=== PATIENT | male | born 1955 | race Caucasian/White ===

== ENCOUNTER 2021-08-20 10:46 | Emergency (ER) | payer MEDICARE ==
[2021-08-20] MEDS ORDERED: Sodium Chloride 0.9% 1000 ML 0 ML ONE (10:55)
[2021-08-20] MEDS ORDERED: Sodium Chloride 0.9% 1000 ML 1,000 ML IV STA ×2 (11:10→12:43)
--- NOTE | 2021-08-20 11:10 | ERPHSYRPT ---
- History of Present Illness Time Seen by Provider: 08/20/21 10:50 Source: EMS Exam Limitations: clinical condition Patient Subjective Stated Complaint: pt here found on floor on back, pt was seen last night at 2100. pt arrived per ems unresponsive, but pulls away to pain, being bagged. Triage Nursing Assessment: pt unresponsive expect to pain, thin with multi skin tears to both arms and knees,warm blankets applied to lower body, has slight brennan ma to lower legs, Physician History: This is a 66-year-old cachectic white male who has home health and apparently was visited by them yesterday but there was no answer at his door. Later in the day (approximately 9 PM) patient was seen by a friend and put on the patient's couch. The friend called him this morning but there was no answer. He asked the police to do a adult welfare check. They could see him through the window blocking the door and EMS was notified. Patient was found unresponsive with room air oxygenation saturation of 70%. Patient arrives to the emergency department via EMS with 100% nonrebreather. Patient is cold cachectic breathing on his own approximately 12-15 respirations per minute. The oxygenation waveform is poor because his extremities are so cold. Patient arrived as a Andrea Munoz but soon after arrival his name was determined. He has a history of cirrhosis, folic acid deficiency, and hypertension. His blood sugar in route from the scene was 80. Timing/Duration: today Severity: moderate Associated Symptoms: other (Patient nonverbal) Allergies/Adverse Reactions: No Known Drug Allergies Allergy (Unverified 08/20/21 11:10) Home Medications: Furosemide 1 ea DAILY 08/20/21 [History] Pantoprazole 40 mg [Protonix 40 mg IV] 1 ea DAILY 08/20/21 [History] Hx Tetanus, Diphtheria Vaccination/Date Given: No (unknown) Hx Influenza Vaccination/Date Given: No (unknown) Hx Pneumococcal Vaccination/Date Given: No (unknown) Immunizations Up to Date: (unknown) Travel Risk - International Travel Have you traveled outside of the country in past 3 weeks: No - Coronavirus Screening Are you exhibiting any of the following symptoms?: No Close contact with a COVID-19 positive Pt in past 14-21 Days: No - Review of Systems Constitutional: No Symptoms Eyes: No Symptoms Ears, Nose, & Throat: No Symptoms Respiratory: No Symptoms Cardiac: No Symptoms Abdominal/Gastrointestinal: No Symptoms Genitourinary Symptoms: No Symptoms Musculoskeletal: No Symptoms Skin: No Symptoms Neurological: Other (Nonverbal) Psychological: No Symptoms Endocrine: No Symptoms Hematologic/Lymphatic: No Symptoms Immunological/Allergic: No Symptoms All Other Systems: Reviewed and Negative - Past Medical History Pertinent Past Medical History: Yes GI Medical History: Cirrhosis - Past Surgical History Past Surgical History: No (unknown) - Social History Smoking Status: Current every day smoker Exposure to second hand smoke: Yes Drug Use: none Patient Lives Alone: (unknown) - Nursing Vital Signs Nursing Vital Signs: Initial Vital Signs O2 Sat by Pulse Oximetry 87 L 08/20/21 10:47 Pain Scale Pain Intensity 0 - Physical Exam General Appearance: lethargy, other Eye Exam: PERRL/EOMI (Nonverbal), eyes nml inspection Ears, Nose, Throat Exam: TMs normal, dry mucous membranes Neck Exam: normal inspection, non-tender, supple, full range of motion Respiratory Exam: normal breath sounds, lungs clear, airway intact, No chest ten derness, No respiratory distress, No rhonchi, No wheezing Cardiovascular Exam: regular rate/rhythm, normal heart sounds, normal peripheral pulses Gastrointestinal/Abdomen Exam: soft, normal bowel sounds, No tenderness Rectal Exam: not done Back Exam: normal inspection, normal range of motion, No CVA tenderness Skin Exam: other (Multiple skin tears including bilateral knees bilateral forearms left upper arm laterally) Lymphatic Exam: No adenopathy SpO2 Interpretation: hypoxic SpO2: 87 O2 Delivery: Non-rebreather - Course Nursing assessment & vital signs reviewed: Yes EKG Interpreted by Me: RATE (79), NORMAL AXIS, NORMAL ST-T, Other (No acute ischemic changes on today's EKG. There is no comparison EKG.) Ordered Tests: Active Orders 24 hr Category Date Time Status Catheter-[place] STAT Care 08/20/21 11:10 Active EKG-ER Only STAT Care 08/20/21 11:10 Active IV Insertion STAT Care 08/20/21 11:10 Active NPO (ED) STAT Care 08/20/21 11:10 Active Oxygen-ED Only Nasal Cannula 2 lpm Care 08/20/21 11:10 Active POCT Glucose Check STAT Care 08/20/21 11:10 Active Pulse Oximetry (ED) STAT Care 08/20/21 11:10 Active CHEST 1 VIEW (PORTABLE) Stat Exams 08/20/21 11:42 Completed HEAD WITHOUT CONTRAST [CT] Stat Exams 08/20/21 11:11 Completed ARTERIAL BLOOD GASES Urgent Lab 08/20/21 10:55 Completed BLOOD CULTURE Stat Lab 08/20/21 13:59 Received CBC W DIFF Stat Lab 08/20/21 11:15 Completed CMP Stat Lab 08/20/21 11:15 Completed CULTURE,URINE Stat Lab 08/20/21 11:10 Ordered D-DIMER QUANTITATIVE Stat Lab 08/20/21 11:15 Completed ETHYL ALCOHOL Stat Lab 08/20/21 11:15 Completed Lactic Acid Stat Lab 08/20/21 10:55 Completed Lactic Acid Stat Lab 08/20/21 13:24 Received POCT GLUCOSE Stat Lab 08/20/21 11:23 Completed PROTIME WITH INR Stat Lab 08/20/21 11:15 Completed T4 (Thyroxine) Stat Lab 08/20/21 11:15 Completed TROPONIN Q3H Lab 08/20/21 11:00 Completed TROPONIN Q3H Lab 08/20/21 15:45 Ordered TROPONIN Q3H Lab 08/20/21 18:45 Ordered TROPONIN Q3H Lab 08/20/21 21:45 Ordered TSH, 3RD Generation Stat Lab 08/20/21 11:15 Completed UA W/RFX UR CULTURE Stat Lab 08/20/21 11:17 Completed Urine Triage Profile Stat Lab 08/20/21 11:17 Completed Medication Summary Discontinued Medications Generic Name Dose Route Start Last Admin Trade Name Freq PRN Reason Stop Dose Admin Dextrose 50 ml 08/20/21 11:25 08/20/21 11:29 Dextrose 50%-Water 50 Ml Abboject IV 08/20/21 11:26 50 ml STAT ONE Administration Dextrose Confirm 08/20/21 11:24 Dextrose 50%-Water 50 Ml Abboject Administered 08/20/21 11:25 Dose 50 ml IV .STK-MED ONE Sodium Chloride Confirm 08/20/21 10:55 Sodium Chloride 0.9% 1000 Ml Administered 08/20/21 10:56 Dose 1,000 mls @ ud .ROUTE .STK-MED ONE Sodium Chloride 1,000 mls @ 999 mls/hr 08/20/21 11:10 08/20/21 12:32 Sodium Chloride 0.9% 1000 Ml IV 08/20/21 12:10 Infused .Q1H1M STA Infusion Sodium Chloride 1,000 mls @ 999 mls/hr 08/20/21 12:43 08/20/21 13:45 Sodium Chloride 0.9% 1000 Ml IV 08/20/21 13:43 999 mls/hr .Q1H1M STA Administration Sodium Chloride Confirm 08/20/21 13:13 Sodium Chloride 0.9% 1000 Ml Administered 08/20/21 13:14 Dose 1,000 mls @ ud .ROUTE .STK-MED ONE Sodium Chloride Confirm 08/20/21 13:18 Sodium Chloride 0.9% 1000 Ml Administered 08/20/21 13:19 Dose 1,000 mls @ ud .ROUTE .STK-MED ONE Naloxone HCl Confirm 08/20/21 11:23 Naloxone Hcl 2mg/2 Ml 2 Mg/2 Ml Syr Administered 08/20/21 11:24 Dose 2 mg .ROUTE .STK-MED ONE Naloxone HCl 2 mg 08/20/21 11:30 08/20/21 11:31 Naloxone Hcl 2mg/2 Ml 2 Mg/2 Ml Syr IV 08/20/21 11:31 2 mg STAT ONE Administration Pantoprazole Sodium 40 mg 08/20/21 12:09 08/20/21 12:33 Pantoprazole 40 Mg Vial IV 08/20/21 12:10 40 mg STAT ONE Administration Pantoprazole Sodium Confirm 08/20/21 12:32 Pantoprazole 40 Mg Vial Administered 08/20/21 12:33 Dose 40 mg IV .STK-MED ONE Lab/Rad Data: Laboratory Result Diagrams 08/20/21 11:15 08/20/21 11:15 Laboratory Results 08/20/21 08/20/21 08/20/21 Range/Units 11:23 11:17 11:17 WBC (4.0-10.5) K/mm3 RBC (4.1-5.6) M/mm3 Hgb (12.5-18.0) gm/dl Hct (42-50) % MCV (78-100) fl MCH (26-32) pg MCHC (32-36) g/dl RDW (11.5-14.0) % Plt Count (150-450) K/mm3 MPV (7.5-11.0) fl Gran % (36.0-66.0) % Eos # (Auto) (0-0.5) Absolute Lymphs (auto) (1.0-4.6) Absolute Monos (auto) (0.0-1.3) Lymphocytes % (24.0-44.0) % Monocytes % (0.0-12.0) % Eosinophils % (0.00-5.0) % Basophils % (0.0-0.4) % Absolute Granulocytes (1.4-6.9) Basophils # (0-0.4) PT (9.4-12.5) SECONDS INR (0.8-3.0) D-Dimer (215-500) ng/mL Puncture Site pCO2 (35-45) mmHg pO2 (75-100) mmHg Base Excess (-2.0-2.0) O2 Saturation (94-100) g/dF ABG pH (7.35-7.45) ABG HCO3 (22-28) ABG O2 Sat (Measured) (95-100) % Rocco Test A-a Gradient a/A Ratio Hemoglobin Carboxyhemoglobin (0.0-6.9) % THgb Methemoglobin (1.4-1.5) % Potassium (3.5-5.1) Temperature C POC O2 Flow Rate % Sodium (137-145) mmol/L Chloride (98-107) mmol/L Carbon Dioxide (22-30) mmol/L Anion Gap (5-15) MEQ/L BUN (9-20) mg/dL Creatinine (0.66-1.25) mg/dL Estimated GFR ML/MIN Glucose (74-106) mg/dL POC Glucometer 67 L (74 to 106) mg/dL Lactic Acid (0.4-2.0) Calcium (8.4-10.2) mg/dL Total Bilirubin (0.2-1.3) mg/dL AST (17-59) U/L ALT (0-50) U/L Alkaline Phosphatase (38-126) U/L Ammonia (9-30) umol/L Troponin I (0.000-0.034) ng/mL Serum Total Protein (6.3-8.2) g/dL Albumin (3.5-5.0) g/dL Thyroxine (T4) (5.53-10.96) ug/dL TSH 3rd Generation (0.47-4.68) mIU/L Urine Color [place] (YELLOW) Urine Appearance SLIGHTLY CLOUDY (CLEAR) Urine pH 5.0 (5-6) Ur Specific [place] 1.016 (1.005-1.025) Urine Protein NEGATIVE (Negative) Urine Ketones NEGATIVE (NEGATIVE) Urine Blood NEGATIVE (0-5) Luis/ul Urine Nitrite NEGATIVE (NEGATIVE) Urine Bilirubin NEGATIVE (NEGATIVE) Urine Urobilinogen NEGATIVE (0-1) mg/dL Ur Leukocyte Esterase NEGATIVE (NEGATIVE) Urine WBC (Auto) NONE (0-5) /HPF Urine RBC (Auto) NONE (0-2) /HPF U Epithel Cells (Auto) NONE (FEW) /HPF Urine Bacteria (Auto) NONE (NEGATIVE) /HPF Urine Culture Reflexed ORDERED SEPARATELY (NO) Urine Glucose NEGATIVE (NEGATIVE) mg/dL Urine Opiates Level NEGATIVE (NEGATIVE) Ur Methadone NEGATIVE (NEGATIVE) Urine Barbiturates NEGATIVE (NEGATIVE) Ur Phencyclidine (PCP) NEGATIVE (NEGATIVE) Urine Amphetamine NEGATIVE (NEGATIVE) U Benzodiazepine Level NEGATIVE (NEGATIVE) Urine Cocaine NEGATIVE (NEGATIVE) Urine Marijuana (THC) NEGATIVE (NEGATIVE) Ethyl Alcohol (0-10) mg/dL Slides for Path Review 08/20/21 08/20/21 08/20/21 Range/Units 11:15 11:15 11:15 WBC (4.0-10.5) K/mm3 RBC (4.1-5.6) M/mm3 Hgb (12.5-18.0) gm/dl Hct (42-50) % MCV (78-100) fl MCH (26-32) pg MCHC (32-36) g/dl RDW (11.5-14.0) % Plt Count (150-450) K/mm3 MPV (7.5-11.0) fl Gran % (36.0-66.0) % Eos # (Auto) (0-0.5) Absolute Lymphs (auto) (1.0-4.6) Absolute Monos (auto) (0.0-1.3) Lymphocytes % (24.0-44.0) % Monocytes % (0.0-12.0) % Eosinophils % (0.00-5.0) % Basophils % (0.0-0.4) % Absolute Granulocytes (1.4-6.9) Basophils # (0-0.4) PT 13.5 H (9.4-12.5) SECONDS INR 1.14 (0.8-3.0) D-Dimer 51532 H* (215-500) ng/mL Puncture Site pCO2 (35-45) mmHg pO2 (75-100) mmHg Base Excess (-2.0-2.0) O2 Saturation (94-100) g/dF ABG pH (7.35-7.45) ABG HCO3 (22-28) ABG O2 Sat (Measured) (95-100) % Rocco Test A-a Gradient a/A Ratio Hemoglobin Carboxyhemoglobin (0.0-6.9) % THgb Methemoglobin (1.4-1.5) % Potassium 5.0 (3.5-5.1) Temperature C POC O2 Flow Rate % Sodium 130 L (137-145) mmol/L Chloride 91 L (98-107) mmol/L Carbon Dioxide 19 L (22-30) mmol/L Anion Gap 24.1 H (5-15) MEQ/L BUN 148 H (9-20) mg/dL Creatinine 9.07 H (0.66-1.25) mg/dL Estimated GFR 6.2 ML/MIN Glucose 67 L (74-106) mg/dL POC Glucometer (74 to 106) mg/dL Lactic Acid (0.4-2.0) Calcium 8.7 (8.4-10.2) mg/dL Total Bilirubin 1.50 H (0.2-1.3) mg/dL AST 79 H (17-59) U/L ALT 32 (0-50) U/L Alkaline Phosphatase 57 (38-126) U/L Ammonia 145 H (9-30) umol/L Troponin I (0.000-0.034) ng/mL Serum Total Protein 6.2 L (6.3-8.2) g/dL Albumin 2.8 L (3.5-5.0) g/dL Thyroxine (T4) 7.01 (5.53-10.96) ug/dL TSH 3rd Generation 4.120 (0.47-4.68) mIU/L Urine Color (YELLOW) Urine Appearance (CLEAR) Urine pH (5-6) Ur Specific [place] (1.005-1.025) Urine Protein (Negative) Urine Ketones (NEGATIVE) Urine Blood (0-5) Luis/ul Urine Nitrite (NEGATIVE) Urine Bilirubin (NEGATIVE) Urine Urobilinogen (0-1) mg/dL Ur Leukocyte Esterase (NEGATIVE) Urine WBC (Auto) (0-5) /HPF Urine RBC (Auto) (0-2) /HPF U Epithel Cells (Auto) (FEW) /HPF Urine Bacteria (Auto) (NEGATIVE) /HPF Urine Culture Reflexed (NO) Urine Glucose (NEGATIVE) mg/dL Urine Opiates Level (NEGATIVE) Ur Methadone (NEGATIVE) Urine Barbiturates (NEGATIVE) Ur Phencyclidine (PCP) (NEGATIVE) Urine Amphetamine (NEGATIVE) U Benzodiazepine Level (NEGATIVE) Urine Cocaine (NEGATIVE) Urine Marijuana (THC) (NEGATIVE) Ethyl Alcohol < 10 (0-10) mg/dL Slides for Path Review 08/20/21 08/20/21 08/20/21 Range/Units 11:15 11:00 10:55 WBC 6.3 (4.0-10.5) K/mm3 RBC 3.52 L (4.1-5.6) M/mm3 Hgb 12.8 (12.5-18.0) gm/dl Hct 36.2 L (42-50) % MCV 102.8 H (78-100) fl MCH 36.4 H (26-32) pg MCHC 35.4 (32-36) g/dl RDW 15.3 H (11.5-14.0) % Plt Count 63 L (150-450) K/mm3 MPV 11.3 H (7.5-11.0) fl Gran % 81.6 H (36.0-66.0) % Eos # (Auto) 0.05 (0-0.5) Absolute Lymphs (auto) 0.69 L (1.0-4.6) Absolute Monos (auto) 0.41 (0.0-1.3) Lymphocytes % 10.9 L (24.0-44.0) % Monocytes % 6.5 (0.0-12.0) % Eosinophils % 0.8 (0.00-5.0) % Basophils % 0.2 (0.0-0.4) % Absolute Granulocytes 5.17 (1.4-6.9) Basophils # 0.01 (0-0.4) PT (9.4-12.5) SECONDS INR (0.8-3.0) D-Dimer (215-500) ng/mL Puncture Site RIGHT FEMORAL pCO2 26 L (35-45) mmHg pO2 504 H* (75-100) mmHg Base Excess -4.9 L (-2.0-2.0) O2 Saturation 97.6 (94-100) g/dF ABG pH 7.44 (7.35-7.45) ABG HCO3 17.7 L (22-28) ABG O2 Sat (Measured) 100.0 (95-100) % Rocco Test NOT APPLICABLE A-a Gradient 177 a/A Ratio 0.74 Hemoglobin 13.7 Carboxyhemoglobin 1.3 (0.0-6.9) % THgb Methemoglobin 1.2 L (1.4-1.5) % Potassium 4.8 (3.5-5.1) Temperature 37.0 C POC O2 Flow Rate 100 % Sodium (137-145) mmol/L Chloride (98-107) mmol/L Carbon Dioxide (22-30) mmol/L Anion Gap (5-15) MEQ/L BUN (9-20) mg/dL Creatinine (0.66-1.25) mg/dL Estimated GFR ML/MIN Glucose (74-106) mg/dL POC Glucometer (74 to 106) mg/dL Lactic Acid (0.4-2.0) Calcium (8.4-10.2) mg/dL Total Bilirubin (0.2-1.3) mg/dL AST (17-59) U/L ALT (0-50) U/L Alkaline Phosphatase (38-126) U/L Ammonia (9-30) umol/L Troponin I 0.082 H* (0.000-0.034) ng/mL Serum Total Protein (6.3-8.2) g/dL Albumin (3.5-5.0) g/dL Thyroxine (T4) (5.53-10.96) ug/dL TSH 3rd Generation (0.47-4.68) mIU/L Urine Color (YELLOW) Urine Appearance (CLEAR) Urine pH (5-6) Ur Specific [place] (1.005-1.025) Urine Protein (Negative) Urine Ketones (NEGATIVE) Urine Blood (0-5) Luis/ul Urine Nitrite (NEGATIVE) Urine Bilirubin (NEGATIVE) Urine Urobilinogen (0-1) mg/dL Ur Leukocyte Esterase (NEGATIVE) Urine WBC (Auto) (0-5) /HPF Urine RBC (Auto) (0-2) /HPF U Epithel Cells (Auto) (FEW) /HPF Urine Bacteria (Auto) (NEGATIVE) /HPF Urine Culture Reflexed (NO) Urine Glucose (NEGATIVE) mg/dL Urine Opiates Level (NEGATIVE) Ur Methadone (NEGATIVE) Urine Barbiturates (NEGATIVE) Ur Phencyclidine (PCP) (NEGATIVE) Urine Amphetamine (NEGATIVE) U Benzodiazepine Level (NEGATIVE) Urine Cocaine (NEGATIVE) Urine Marijuana (THC) (NEGATIVE) Ethyl Alcohol (0-10) mg/dL Slides for Path Review YES 08/20/21 Range/Units 10:55 WBC (4.0-10.5) K/mm3 RBC (4.1-5.6) M/mm3 Hgb (12.5-18.0) gm/dl Hct (42-50) % MCV (78-100) fl MCH (26-32) pg MCHC (32-36) g/dl RDW (11.5-14.0) % Plt Count (150-450) K/mm3 MPV (7.5-11.0) fl Gran % (36.0-66.0) % Eos # (Auto) (0-0.5) Absolute Lymphs (auto) (1.0-4.6) Absolute Monos (auto) (0.0-1.3) Lymphocytes % (24.0-44.0) % Monocytes % (0.0-12.0) % Eosinophils % (0.00-5.0) % Basophils % (0.0-0.4) % Absolute Granulocytes (1.4-6.9) Basophils # (0-0.4) PT (9.4-12.5) SECONDS INR (0.8-3.0) D-Dimer (215-500) ng/mL Puncture Site pCO2 (35-45) mmHg pO2 (75-100) mmHg Base Excess (-2.0-2.0) O2 Saturation (94-100) g/dF ABG pH (7.35-7.45) ABG HCO3 (22-28) ABG O2 Sat (Measured) (95-100) % Rocco Test A-a Gradient a/A Ratio Hemoglobin Carboxyhemoglobin (0.0-6.9) % THgb Methemoglobin (1.4-1.5) % Potassium (3.5-5.1) Temperature C POC O2 Flow Rate % Sodium (137-145) mmol/L Chloride (98-107) mmol/L Carbon Dioxide (22-30) mmol/L Anion Gap (5-15) MEQ/L BUN (9-20) mg/dL Creatinine (0.66-1.25) mg/dL Estimated GFR ML/MIN Glucose (74-106) mg/dL POC Glucometer (74 to 106) mg/dL Lactic Acid 3.8 H (0.4-2.0) Calcium (8.4-10.2) mg/dL Total Bilirubin (0.2-1.3) mg/dL AST (17-59) U/L ALT (0-50) U/L Alkaline Phosphatase (38-126) U/L Ammonia (9-30) umol/L Troponin I (0.000-0.034) ng/mL Serum Total Protein (6.3-8.2) g/dL Albumin (3.5-5.0) g/dL Thyroxine (T4) (5.53-10.96) ug/dL TSH 3rd Generation (0.47-4.68) mIU/L Urine Color (YELLOW) Urine Appearance (CLEAR) Urine pH (5-6) Ur Specific [place] (1.005-1.025) Urine Protein (Negative) Urine Ketones (NEGATIVE) Urine Blood (0-5) Luis/ul Urine Nitrite (NEGATIVE) Urine Bilirubin (NEGATIVE) Urine Urobilinogen (0-1) mg/dL Ur Leukocyte Esterase (NEGATIVE) Urine WBC (Auto) (0-5) /HPF Urine RBC (Auto) (0-2) /HPF U Epithel Cells (Auto) (FEW) /HPF Urine Bacteria (Auto) (NEGATIVE) /HPF Urine Culture Reflexed (NO) Urine Glucose (NEGATIVE) mg/dL Urine Opiates Level (NEGATIVE) Ur Methadone (NEGATIVE) Urine Barbiturates (NEGATIVE) Ur Phencyclidine (PCP) (NEGATIVE) Urine Amphetamine (NEGATIVE) U Benzodiazepine Level (NEGATIVE) Urine Cocaine (NEGATIVE) Urine Marijuana (THC) (NEGATIVE) Ethyl Alcohol (0-10) mg/dL Slides for Path Review - Progress Progress: improved, re-examined Progress Note: 08/20/21 11:30 Hospital course: Patient is mildly lethargic opens his eyes to sound. Does not follow commands at this time. He is moving all his extremities. He continues to breathe 12-15 respirations per minute. His room air oxygenation, once he has warmed up and the pulse oximeter is in the appropriate location, is 100%. His ABG results show PO2 in excess of 500 and a CO2 of 26. His pH is 7.44. He does not seem to be in any distress at this time. His repeat blood sugar was 67. Patient received an amp of D50. 08/20/21 12:10 Hospital course: Patient is still moving all his extremities he is room air oxygenation is still 100%. His blood pressure is now increasing to 111/71. He is answering questions intermittently with yes and no answers. The head CT without contrast shows a nonacute senile brain. His chest x-ray shows nonacute chest with chronic features. 08/20/21 13:34 Medical decision makin I spoke with Dr. Booth who is a hospitalist on- call at [facility]. [facility] is aware of the patient receives his hospital care. His primary care doctor is also involved in [facility]. Patient was in the hospital at [facility] from August 06 through August 13. I reviewed the patient history, laboratory work-up results as well as radiogr aphic results. I reviewed the patient's most up-to-date vital signs with Dr. Booth. He accepts the patient in transfer. The patient will require an ICU bed and we are to receive a call back once the ICU bed becomes available. These issues were discussed with one of the patient's sisters. Our nurse Merlin has more information on that phone call. He updated one of the patient's sisters who was going to be the liaison between Merlin/emergency department and the patient's family. Counseled pt/family regarding: lab results, diagnosis, rad results - Departure Departure Disposition: Transfer Clinical Impression: Altered mental status, Metabolic encephalopathy, Hyperammonemia, Hyponatremia, Acute renal failure, Skin tear Condition: Serious Critical Care Time: Yes Critical Care Time(excluding separately billable procedures): Critical 30-74 mins Referrals: DOCTOR,NO FAMILY [Primary Care Provider] -
[2021-08-20 11:22] LABS: A-aADO2 177; ABG HEMOGLOBIN 13.7; ABG POTASSIUM 4.8 (3.5-5.1); ARTERIAL BLOOD GAS BASE EXCESS -4.9 (-2.0-2.0); ARTERIAL BLOOD GAS FIO2 100 %; ARTERIAL BLOOD GAS PCO2 26 mmHg (35-45); ARTERIAL BLOOD GAS PO2 504 mmHg (75-100); ARTERIAL BLOOD GAS pH 7.44 (7.35-7.45); CARBOXYHEMOGLOBIN 1.3 % THgb (0.0-6.9); HCO3- 17.7 (22-28); HGB O2 SAT 97.6 g/dF (94-100); Methhemoglobin 1.2 % (1.4-1.5)
[2021-08-20 11:23] LABS: ABG SITE RIGHT FEMORAL
[2021-08-20] MEDS ORDERED: NARCAN 2 MG/2 ML ONE (11:23)
[2021-08-20] MEDS ORDERED: D50W 50 ml Abboject IV ONE ×2 (11:24→11:25)
[2021-08-20 11:25] LABS: Absolute Neutrophil Ct (ANC) 5.17 (1.4-6.9); BASOPHIL % 0.2 % (0.0-0.4); Basophil (Absolute #) 0.01 (0-0.4); Eosinophil % 0.8 % (0.00-5.0); Eosinophil (Absolute #) 0.05 (0-0.5); Hematocrit 36.2 % (42-50); Hemoglobin 12.8 gm/dl (12.5-18.0); Lymphocyte (Absolute #) 0.69 (1.0-4.6); Lymphocytes % 10.9 % (24.0-44.0); Mean Cell Volume 102.8 fl (78-100); Mean Corpuscular Hemoglobin 36.4 pg (26-32); Mean Corpuscular Hgb Concent. 35.4 g/dl (32-36); Mean Platelet Volume 11.3 fl (7.5-11.0); Monocyte (Absolute #) 0.41 (0.0-1.3); Monocytes % 6.5 % (0.0-12.0); Neutrophil % 81.6 % (36.0-66.0); Platelet Count 63 K/mm3 (150-450); Red Blood Count 3.52 M/mm3 (4.1-5.6); Red Cell Distribution Width 15.3 % (11.5-14.0); White Blood Count 6.3 K/mm3 (4.0-10.5)
[2021-08-20 11:26] LABS: INR 1.14 (0.8-3.0); PROTIME 13.5 SECONDS (9.4-12.5)
[2021-08-20] MEDS ORDERED: NARCAN 2 MG/2 ML IV ONE (11:30)
[2021-08-20 11:41] LABS: Creatinine 1 9.07 mg/dL (0.66-1.25); EST GLOMERULAR FILTRATION RATE 6.2 ML/MIN; SGPT/ALT 32 U/L (0-50)
--- NOTE | 2021-08-20 11:51 | XRAY ---
Indication: Unresponsive. Comparison: None Portable chest clear with a few incidental tiny calcified granulomas. Heart not enlarged. Bony thorax intact with mild osteopenia, degenerative changes, and old right 4-6 rib fractures. Impression: Nonacute chest with chronic features.
--- NOTE | 2021-08-20 11:53 | XRAY ---
Indication: Found unresponsive. Multiple contiguous axial images obtained through the head without contrast. Comparison: None Age-appropriate global atrophy and mild periventricular degenerative micro-ischemia bilaterally. No acute intracranial hemorrhage, abnormal extra-axial fluid collection, or mass effect. Fourth ventricle is midline without hydrocephalus. Bony calvarium intact. Paranasal sinuses and mastoid air cells are clear. Impression: Nonacute senile brain.
[2021-08-20 12:01] LABS: ALBUMIN 2.8 g/dL (3.5-5.0); ALKALINE PHOSPHATASE 57 U/L (38-126); ANION GAP 24.1 MEQ/L (5-15); CHLORIDE 91 mmol/L (98-107); Calcium 8.7 mg/dL (8.4-10.2); Carbon Dioxide 19 mmol/L (22-30); ETHYL ALCOHOL < 10 mg/dL (0-10); Glucose 67 mg/dL (74-106); SGOT/AST 79 U/L (17-59); SODIUM 130 mmol/L (137-145); T4 (Thyroxine) 7.01 ug/dL (5.53-10.96); Total Protein 6.2 g/dL (6.3-8.2)
[2021-08-20 12:02] LABS: Appearance SLIGHTLY CLOUDY (CLEAR); Bilirubin NEGATIVE (NEGATIVE); Blood NEGATIVE Ery/ul (0-5); Glucose NEGATIVE (NEGATIVE); Ketones NEGATIVE (NEGATIVE); Leukocyte Esterase NEGATIVE (NEGATIVE); Nitrite NEGATIVE (NEGATIVE); Protein,Urine Dip NEGATIVE (Negative); Specific Gravity 1.016 (1.005-1.025); Urobilinogen NEGATIVE mg/dL (0-1)
[2021-08-20] MEDS ORDERED: PROTONIX 40 MG IV IV ONE ×2 (12:09→12:32)
[2021-08-20 12:20] LABS: Amphetamine,Urine NEGATIVE (NEGATIVE); Barbiturate,Urine NEGATIVE (NEGATIVE); Benzodiazepine,Urine NEGATIVE (NEGATIVE); Cocaine,Urine NEGATIVE (NEGATIVE); Methadone,Urine NEGATIVE (NEGATIVE); Opiate,Urine NEGATIVE (NEGATIVE); PCP,Urine NEGATIVE (NEGATIVE); THC,Urine NEGATIVE (NEGATIVE)
[2021-08-20 12:24] LABS: Slide Review 1 YES
[2021-08-20 12:29] LABS: BLOOD UREA NITROGEN 148 mg/dL (9-20)
[2021-08-20] MEDS ORDERED: Sodium Chloride 0.9% 1000 ML 1,000 ML ONE ×2 (13:13→13:18)
[2021-08-20 15:05] VITALS: BP 98/52; PULSE 90; O2SAT 99
== END 2021-08-20 15:00 | disposition short-term general hospital (02) ==
LOC: ED 10:46 → EDBD 10:46 → ED 15:00
DX: R41.82 Altered mental status, unspecified (principal); G93.40 Encephalopathy, unspecified; E72.4 Disorders of ornithine metabolism; E87.1 Hypo-osmolality and hyponatremia; N17.9 Acute kidney failure, unspecified; S41.112A Laceration without foreign body of left upper arm, initial encounter; S41.111A Laceration without foreign body of right upper arm, initial encounter; S81.012A Laceration without foreign body, left knee, initial encounter; S81.011A Laceration without foreign body, right knee, initial encounter; W18.30XA Fall on same level, unspecified, initial encounter
CPT/HCPCS: 36000; 36415; 36600; 51702; 70450; 71045; 80053; 80307; 81001; 82140; 82375; 82803; 82947; 83605; 84436; 84443; 84484; 85025; 85379; 85610; 87040; 87086; 93005; 94760; 96360; 96374; 96375; 99285; 99291; G0480; J2310